=== PATIENT | male | born 1975 | race Caucasian/White ===

== ENCOUNTER 2023-08-17 08:02 | Outpatient (REF) | payer BC, SELFPAY ==
[2023-08-17 08:16] LABS: MANUAL DIFF FLAG NO
[2023-08-17 08:51] LABS: Basophils Absolute Auto 0.1 X10*3/uL (0.0-0.2); Basophils Percent Auto 1.3 % (0-2); Eosinophils Absolute Auto 0.6 X10*3/uL (0.0-0.4); Eosinophils Percent Auto 8.8 % (0-4); Hematocrit 43.9 % (42.0-52.0); Imm Gran Abs Auto 0.02 X10*3/uL (0.00-0.03); Imm Gran Pct Auto 0.3 % (0.0-0.4); Lymphocytes Absolute Auto 2.2 X10*3/uL (1.2-4.9); Lymphocytes Percent Auto 34.8 % (20-40); Mean Corpuscular HGB Conc 34.2 g/dl (31.0-36.0); Mean Corpuscular Hemoglobin 31.2 pg (27.0-33.0); Mean Corpuscular Volume 91.3 fL (80.0-98.0); Mean Platelet Volume 11.9 fL (9.4-12.4); Monocytes Absolute Auto 0.5 X10*3/uL (0.1-1.2); Monocytes Percent Auto 7.5 % (2-11); Neutrophils Absolute Auto 2.9 x10*3/uL (2.0-8.3); Neutrophils Percent Auto 47.3 % (45-73); Platelet Count 293 X10*3/uL (160-400); Red Blood Count 4.81 X10*6/uL (4.60-5.80); Red Cell Distribution Width 12.5 % (11.0-16.0); White Blood Count 6.2 X10*3/uL (4.8-10.8)
[2023-08-17 09:34] LABS: Alanine Aminotransferase 24 U/L (0-40); Albumin Level 4.5 g/dL (3.5-5.0); Alkaline Phosphatase 82 U/L (39-117); Anion Gap 11 (12-20); Aspartate Amino Transferase 21 U/L (5-37); Bilirubin Total 0.5 mg/dL (0.0-1.0); Blood Urea Nitrogen 16 mg/dL (9-16); Calcium 9.7 mg/dL (8.4-10.2); Carbon Dioxide 28 mmol/L (22-29); Chloride 109 mmol/L (96-108); Cholesterol 172 mg/dL (<200); Estimated Glomerular Filt Rate > 60; Glucose Fasting 98 mg/dL (60-99); HDL Cholesterol 51 mg/dL (>40); LDL Cholesterol Calculated 105 mg/dL (<100); Potassium 4.2 mmol/L (3.3-5.1); Sodium 144 mmol/L (135-145); Total Protein 7.5 g/dL (6.5-8.0); Triglycerides 81 mg/dL (<150); Uric Acid 5.3 mg/dL (3.4-7.0)
== END 2023-08-17 08:03 | disposition home or self-care (01) ==
LOC: HO.LAB 08:02
PROVIDERS: PCP Internal Medicine; Visit Provider Internal Medicine
DX: D64.9 Anemia, unspecified (principal); E78.5 Hyperlipidemia, unspecified; N28.9 Disorder of kidney and ureter, unspecified; M10.9 Gout, unspecified
CPT/HCPCS: 36415; 80053; 80061; 84550; 85025

== ENCOUNTER 2023-08-31 08:52 | Outpatient (AMB) | payer BC, SELFPAY ==
[2023-08-31 08:53] VITALS: BP 98/60; PULSE 67; O2SAT 98; BMI 24.7
--- NOTE | 2023-08-31 08:53 | MHC.PC.OV ---
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 Accompanied by: Self / Same As Patient Allergies No Known Allergies Allergy (Verified 08/31/23 08:53) Medication List - Last Reconciled 08/31/23 by Miguelangel Colon MD No Known Home Meds Tobacco use date assessed: 08/31/23 Dental Screening Dental Screen Date: 08/31/23 Did you have a dental visit in the last 12 months?: Yes Did you have a dental problem in the last 6 months where you did not have access to dental care?: No Was dental information given to patient?: Patient has dentist HPI Intermittent Shortness of breath HPI Details intermittent SOB; allergic rhinitis PFSH Social History Housing: House Patient Tobacco Use Status: Former Tobacco user Tobacco use type: Cigarette e-Cigarette/Vaping Use: Never Used Second Hand Smoke Exposure: No service: No Current occupational status: employed Cognitive needs: No Hearing needs: No Vision needs: Yes Questionnaire PHQ-9 Over the last 2 weeks, how often have you been bothered by any of the following problems? 1. Little interest or pleasure in doing things: not at all 2. Feeling down, depressed, or hopeless: not at all 3. Trouble falling or staying asleep, or sleeping too much: not at all 4. Feeling tired or having little energy: not at all 5. Poor appetite or overeating: not at all 6. Feeling bad about yourself - or that you are a failure or have let yourself or your family down: not at all 7. Trouble concentrating on things, such as reading the newspaper or watching television: not at all 8. Moving or speaking so slowly that other people could have noticed. Or the opposite - being so fidgety or restless that you have been moving around a lot more than usual: not at all 9. Thoughts that you would be better off or of hurting yourself in some way: not at all Total score: 0 Depression Screening Interpretation: Negative Depression Screening Done: Yes 07654 - PHQ-9 Billing: Yes Source: Developed by Drs. Tony Tucker, Rain Ventura, Levar Ponce and colleagues, with an educational dunia from [email or web address]. Thrive Questionnaire Date Thrive assessed: 08/31/23 I am a: Patient What is your living situation today?: I have a steady place to live Within the past 12 months, did the food you bought not last and you didn't have the money to get more?: Never true Within the past 12 months, did you worry whether your food would run out before you got money to buy more?: Never true Do you have trouble paying for medicines?: No Do you have trouble getting transportation to medical appointments?: No Do you have trouble paying your heating and electricity bill?: No Do you have trouble taking care of your child, family member or friend?: No Do you have trouble with day-to-day activities such as bathing, preparing meals, shopping, managing finances, etc.?: No Are you currently unemployed and looking for a job?: No Are you interested in more education?: No Please select the resources that you would like help with: None THRIVE Score: 0 AUDIT C Alcohol Use Questionnaire (AUDIT-C) 1. How often do you have a drink containing alcohol?: 2-4 times a month 2. How many drinks containing alcohol do you have on a typical day when you are drinking?: 3 or 4 3. How often do you have six or more drinks on one occasion?: Never Total Score: 3 Score Reviewed/Action Taken: Yes FABIO-7 AMB Questionnaire FABIO-7 Date FABIO - 7 assessed: 08/31/23 Feeling nervous, anxious, or on edge: 0 = Not at all Not being able to stop or control worryin = Not at all Worrying too much about different things: 0 = Not at all Trouble relaxin = Not at all Being so restless that it is hard to sit still: 0 = Not at all Becoming easily annoyed or irritable: 0 = Not at all Feeling afraid as if something awful might happen: 0 = Not at all Total FABIO-7 score (0-4 normal; 5-9 mild; 10-14 moderate; 15-21 severe): 0 Source: Developed by Alexandre Fernandoet B.W. Lorenzo, Levar Ponce and colleagues, with an educational dunia from [email or web address]. FABIO-7 Assessment Billing FABIO-7 Assessment Tool: FABIO-7 Assessment 24611 Review of Systems Const Denies chills, Denies headache(s) and Denies weight loss ENT Denies headache(s) Card Denies chest pain, Denies syncope and Denies irregular heart rhythm Resp Denies chest congestion GI Denies abdominal pain, Denies change in stool character, Denies nausea and Denies vomiting Musc Denies deformity and Denies joint swelling Neuro Denies syncope and Denies headache(s) Physical exam (Primary Care) Vital Signs: Last Vital Signs Pulse 67 08/31/23 08:53 BP 98/60 08/31/23 08:53 Pulse Ox 98 08/31/23 08:53 Oxygen Delivery Method Room Air 08/31/23 08:53 BMI result Body Mass Index 24.7 Tobacco/Smoking Status: Tobacco use Status Tobacco use date assessed 08/31/23 08/31/23 08:54 Patient Tobacco Use Status Former Tobacco user 08/31/23 08:54 Tobacco use type Cigarette 08/31/23 08:54 e-Cigarette/Vaping Use Never Used 08/31/23 08:54 PHQ-9: PHQ-9 Score PHQ-9: Total score 0 08/31/23 08:54 Depression Screening Interpretation: Negative Thrive Assessment: Date of Thrive Assessment Date Thrive assessed 08/31/23 08/31/23 08:54 Const General: cooperative, comfortable, no acute distress and alert Neck Neck: Yes no lymphadenopathy Thyroid: Thyroid normal Resp Effort & Inspection: normal respiratory effort Auscultation: clear to auscultation bilaterally Percussion: percussion normal Cardio Jugular venous distension: no JVD Palpation: normal PMI Rate: regular rate Rhythm: regular rhythm Heart sounds: S1 normal heart sound present and S2 normal heart sound present GI Inspection: Yes normal to inspection Palpation (GI): No hepatosplenomegaly present Skin General skin exam: no rashes or lesions noted Extrem General: Yes no clubbing, cyanosis or edema Assessment and Plan Assessment & Plan (1) Asthma: Code(s): J45.909 - Unspecified asthma, uncomplicated Plan: rx sent Medications: New albuterol sulfate 90 mcg/actuation (ProAir HFA) 2 puffs PO Q6H PRN 18 grams 8RF bronchospasm Coding Level of Care Code Est Pt Level 3 (08102) Diagnoses Asthma J45.909 Additional Codes FABIO-7 Assessment Billing - FABIO-7 Assessment Tool: FABIO-7 Assessment 39429 ([id number])
== END 2023-08-31 09:31 | disposition home or self-care (01) ==
PROVIDERS: PCP Internal Medicine; Visit Provider Internal Medicine
DX: J45.909 Unspecified asthma, uncomplicated (principal)
CPT/HCPCS: 99213

== ENCOUNTER 2024-06-20 10:33 | Emergency (ER) | payer BC, SELFPAY ==
--- NOTE | ~2024-06-20 | XR_ITS ---
EXAMINATION: XR CHEST 2 VIEWS HISTORY: Fall, right rib pain. COMPARISON: Comparison is made with the prior examination dated 05/24/2018. FINDINGS: PA and lateral views of the chest are submitted. The lungs are expanded and clear. There is no pleural effusion, pneumothorax, or pulmonary vascular congestion. The heart is normal in size. The bones are intact. XR/XR chest 2V IMPRESSION: No acute cardiopulmonary abnormality. Electronically signed by: Tony Juarez MD 06/20/2024 11:37 AM EST
--- NOTE | ~2024-06-20 | CT_ITS ---
EXAMINATION: CT CHEST WITHOUT CONTRAST CLINICAL INFORMATION: Right-sided chest pain, trauma 2 weeks ago. COMPARISON: Chest x-ray performed earlier today TECHNIQUE: Multidetector volumetric CT imaging of the chest was done. Axial MIP volume rendering provided. Sagittal and coronal reformatted images were obtained. This CT examination was performed using dose optimization techniques as appropriate, variously including the following: *Automated exposure control *Adjustment of mA and/or kV according to patient size (this includes techniques or standardized protocols for targeted exams where dose is matched to indication/reason for exam; i.e. 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 LUNGS: Lungs are hyperinflated without acute pneumonic process. There is no pulmonary nodule, mass, contusion atelectatic changes. Punctate 2 mm visualized left upper lobe on axial image 25/10. Calcified granuloma MEDIASTINUM: Thyroid lobes are symmetric and normal. The central trachea and the bronchi are widely patent. No abnormal size mediastinal hilar lymph nodes seen. There is no pericardial effusion. The heart size and the great vessels are normal caliber. CORONARY ARTERY CALCIFICATION: None visualized on this study. PLEURA: There is no pleural effusion. No pleural mass or thickening. AXILLA: No lymphadenopathy. UPPER ABDOMEN: Visualized liver, spleen, pancreas and bilateral adrenal glands are unremarkable. There are no radiopaque gallstones. OSSEOUS STRUCTURES: No aggressive lytic or sclerotic process seen. CT/CT chest wo IV con IMPRESSION: Unremarkable CT chest examination. No right rib fracture or chest wall bony abnormality seen Fleischner guidelines were followed. Electronically signed by: Kilo Castañeda MD 06/20/2024 01:21 PM [facility]
[2024-06-20 10:37] VITALS: BP 110/66; PULSE 64; RESP 16; TEMP 37; O2SAT 99; BMI 25.9
--- NOTE | 2024-06-20 11:16 | ED_ITS ---
HPI - General Adult General Chief complaint: Fall Stated complaint: fall, breathing issues, UC sent for CT Time Seen by Provider: 06/20/24 11:11 Source: patient Mode of arrival: ambulatory Limitations: no limitations History of Present Illness ED Provider: Judith Mullins PA-C HPI narrative: Patient is a 48 year old assigned male at with no reported medical history presenting to the emergency department today with right sided rib pain and shortness of breath. Patient states that 2 weeks ago he fell roller skating and injured his right chest / shoulder area. Patient states that he thought it was musculoskeletal but he was running with his daughter's basketball team and became very short of breath then started coughing up what appeared to be clear fluid that had a water consistency. Patient denies any dizziness, lightheadedness, abdominal pain, nausea, vomiting, fever, chills, blurry vision, double vision, loss of vision, back pain, night sweats, pain with urination, increased urinary frequency, increased urinary urgency, blood in his urine or stool, syncope or a near syncopal episode, bowel incontinence, bladder incontinence, or any other complaints at this time. Relieving factors: none Exacerbating factors: movement Associated symptoms: chest pain and shortness of breath Treatments prior to arrival: none Related Data Previous Rx's ?Medication ?Instructions ?Recorded albuterol sulfate 90 mcg/actuation 2 puff PO Q6H PRN bronchospasm #18 08/31/23 aerosol inhaler (ProAir HFA) grams Allergies Allergy/AdvReac Type Severity Reaction Status Date / Time No Known Allergies Allergy Verified 06/20/24 10:42 Review of Systems 2 Constitutional: Constitutional: Reports no additional constitutional complaints, Denies chills, Denies fever(s) and Denies night sweats Eyes: Eyes: Reports no additional eye complaints, Denies blurry vision, Denies change in vision, Denies diplopia, Denies eye discharge, Denies loss of vision and Denies eye pain ENT: Denies dizziness Cardiovascular: Cardiovascular: Reports no additional cardiovascular complaints, Reports chest pain (right sided and rib pain), Denies lightheadedness, Denies Loss of Consciousness and Reports dyspnea Respiratory: Respiratory: Reports no additional respiratory complaints and Reports dyspnea Gastrointestinal: Gastrointestinal: Reports no additional gastrointestinal complaints, Denies abdominal pain, Denies melena, Denies hematochezia, Denies change in bowel habits and Denies change in stool character Genitourinary: Genitourinary: Reports no additional male genitourinary complaints, Denies hematuria, Denies oliguria, Denies difficulty urinating, Denies dysuria, Denies urinary frequency, Denies urinary hesitancy, Denies urinary incontinence and Denies urinary urgency Musculoskeletal: Musculoskeletal: Reports no additional musculoskeletal complaints, Denies numbness and Denies tingling Neurologic: Denies dizziness, Denies loss of vision, Denies numbness and Denies tingling Psychiatric: Psychiatric: Reports no additional psychiatric complaints Endocrine: Endocrine: Reports no additional endocrine complaints Hematologic/Lymphatic: Hematologic/Lymphatic: Reports no additional hematologic/lymphatic complaints Allergic/Immunologic: Allergic/Immunologic: Reports no additional allergic/immunologic complaints PMFSH Past Medical History Attestation statement: The following information was validated with the patient. Source: old records reviewed and nursing notes reviewed Social History Social History Housing: House Patient Tobacco Use Status: Former Tobacco user Tobacco use type: Cigarette Smoked in Last 30 Days: No e-Cigarette/Vaping Use: Never Used Second Hand Smoke Exposure: No Advance Directives: No Advance Directives Information Provided: No service: No Current occupational status: employed Cognitive needs: No Hearing needs: No Vision needs: Yes Physical Exam ED Vital Signs: Vital Signs - 24 hr 06/20/24 10:37 06/20/24 12:17 06/20/24 13:31 Temperature 98.6 F 98.2 F 98.2 F Pulse Rate 64 57 57 Respiratory Rate 16 16 16 Blood Pressure 110/66 111/71 111/71 Pulse Oximetry 99 99 99 Oxygen Delivery Method Room Air Room Air Room Air BMI result Body Mass Index 25.9 Const General: cooperative, no acute distress, alert and awake Nutritional Appearance: well nourished Orientation/consciousness: patient oriented x3 Limitations: no limitations HENMT Head: Yes normal to inspection and Yes atraumatic Ears: hearing grossly normal bilaterally and external ears normal General nose exam: Normal external nose present, no nasal discharge noted and no epistaxis Face and sinus: Yes normal facial exam, No abrasion and No laceration Mouth: Normal oral and palatal mucosa present, no drooling and no muffled voice Eyes General: appearance normal, both eyes and all related structures Periorbital: periorbital findings normal Eyelids: Yes eyelids normal Conjunctivae: conjunctivae normal Pupils: Equal, round and reactive pupils present EOM: EOMs intact bilaterally Neck Neck: Yes normal visual inspection, Yes full ROM and Yes no lymphadenopathy Chest Chest palpation & inspection: normal inspection of the chest Resp Effort & Inspection: normal respiratory effort and able to speak in complete sentences GI Inspection: Yes normal to inspection Neuro General: patient oriented x3 and moves all extremities Cranial nerves: Yes Equal, round and reactive pupils present Cognition (Neuro): normal cognition Extrem General: Yes normal to inspection, Yes full ROM and Yes capillary refill normal Psych Appearance: grossly normal Mental Status: mental status grossly normal Affect: normal affect Attitude: cooperative Thought process: Normal thought process present Thought content: Normal thought content present Insight: Good insight present (Psych) Medical Decision Making Medical Decision Making [facility] Narrative: Patient is a 48 year old assigned male at with no reported medical history presenting to the emergency department today with right sided rib pain and shortness of breath. Patient's physical exam was unremarkable. Patient's blood work was unremarkable. Patient's EKG was unremarkable. Patient's chest x-ray and chest CT showed no acute process. Patient's COVID-19 test is positive. I explained my physical exam findings as well as all test results to the patient. I answered all questions asked by the patient. I stressed the importance of the patient taking his medication as directed (either prescribed or as the over the counter packaging recommends). I stressed the importance of the patient following up with his primary care provider. I stressed the importance of the patient returning to the emergency department immediately if his symptoms were to worsen or if he were to develop any dizziness, shortness of breath, difficulty breathing, chest pain, blurry vision, loss of vision, nausea, vomiting, abdominal pain, fever, chills, back pain, or any other complaints. Patient verbalized agreement and understanding with this treatment plan and discharge. Differential Diagnosis Differential Diagnoses: The differential diagnosis associated with the presentation includes Rib fracture Rib contusion COVID-19 Chest pain Atypical chest pain Pulmonary contusion Admission/Observation Consideration of admission/observation: Escalation of care including admission/observation considered Patient would have been admitted to the hospital had his work up had any findings where hospital admission was appropriate and his clinical presentation warranted hospital admission. Lab Data [facility] Lab Attestation statement: I reviewed the patient's lab results. My interpretation of these results are in the MDM Rationale portion of this note. 06/20/24 12:29 06/20/24 12:29 Labs: Lab Results 06/20/24 Range/Units 12:29 WBC 7.4 (4.8-10.8) X10*3/uL RBC 4.60 (4.60-5.80) X10*6/uL Hgb 14.2 (14.0-18.0) g/dl Hct 41.2 L (42.0-52.0) % MCV 89.6 (80.0-98.0) fL MCH 30.9 (27.0-33.0) pg MCHC 34.5 (31.0-36.0) g/dl RDW 12.7 (11.0-16.0) % Plt Count 282 (160-400) X10*3/uL MPV 11.2 (9.4-12.4) fL Immature Gran % (Auto) 0.1 (0.0-0.4) % Neut % (Auto) 47.3 (45-73) % Lymph % (Auto) 34.6 (20-40) % [place] % (Auto) 7.2 (2-11) % Eos % (Auto) 9.8 H (0-4) % Baso % (Auto) 1.0 (0-2) % Lymph # (Auto) 2.6 (1.2-4.9) X10*3/uL [place] # (Auto) 0.5 (0.1-1.2) X10*3/uL Eos # (Auto) 0.7 H (0.0-0.4) X10*3/uL Baso # (Auto) 0.1 (0.0-0.2) X10*3/uL Abs Immat Gran (auto) 0.01 (0.00-0.03) X10*3/uL Absolute Neuts (auto) 3.5 (2.0-8.3) x10*3/uL Absolute Nucleated RBC 0.000 (0.0-0.012) X10*3/uL Nucleated RBC % (auto) 0.0 (0.0-0.2) /100WBC PT 11.9 (10.9-12.4) SEC INR 1.0 (0.9-1.1) APTT 31.6 (26.0-36.8) SEC Sodium 142 (135-145) mmol/L Potassium 4.0 (3.3-5.1) mmol/L Chloride 108 (96-108) mmol/L Carbon Dioxide 29 (22-29) mmol/L Anion Gap 9 L (12-20) BUN 17 H (9-16) mg/dL Creatinine 0.94 (0.5-1.4) mg/dL Estim Creat Clear Calc 98.1 Estimated GFR > 60 Random Glucose 88 (60-115) mg/dL Calcium 9.0 D (8.4-10.2) mg/dL Magnesium 2.3 (1.6-2.6) mg/dL Total Bilirubin 0.5 (0.0-1.0) mg/dL AST 25 (5-37) U/L ALT 29 (0-40) U/L Alkaline Phosphatase 79 (39-117) U/L Troponin I High Sens 9.3 (<3.5-35.0) ng/L Total Protein 7.0 (6.5-8.0) g/dL Albumin 4.2 (3.5-5.0) g/dL Influenza Type A (PCR) NEGATIVE (Negative) Influenza Type B (PCR) NEGATIVE (Negative) RSV RNA Qual (PCR) NEGATIVE (Negative) SARS-CoV-2 RNA (RT-PCR) POSITIVE A (Negative) Independent Interpretation I performed an independent interpretation of an: EKG, Plain X-Ray and CT Scan Interpretation: My interpretation is in agreement with the radiologist's impression of these imaging studies. L Report Number: [id number]: Total DLP = 282.00 mGy-cm EXAMINATION: CT CHEST WITHOUT CONTRAST CLINICAL INFORMATION: Right-sided chest pain, trauma 2 weeks ago. COMPARISON: Chest x-ray performed earlier today TECHNIQUE: Multidetector volumetric CT imaging of the chest was done. Axial MIP volume rendering provided. Sagittal and coronal reformatted images were obtained. This CT examination was performed using dose optimization techniques as appropriate, variously including the following: *Automated exposure control *Adjustment of mA and/or kV according to patient size (this includes techniques or standardized protocols for targeted exams where dose is matched to indication/reason for exam; i.e. 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 LUNGS: Lungs are hyperinflated without acute pneumonic process. There is no pulmonary nodule, mass, contusion atelectatic changes. Punctate 2 mm visualized left upper lobe on axial image 25/10. Calcified granuloma MEDIASTINUM: Thyroid lobes are symmetric and normal. The central trachea and the bronchi are widely patent. No abnormal size mediastinal hilar lymph nodes seen. There is no pericardial effusion. The heart size and the great vessels are normal caliber. CORONARY ARTERY CALCIFICATION: None visualized on this study. PLEURA: There is no pleural effusion. No pleural mass or thickening. AXILLA: No lymphadenopathy. UPPER ABDOMEN: Visualized liver, spleen, pancreas and bilateral adrenal glands are unremarkable. There are no radiopaque gallstones. OSSEOUS STRUCTURES: No aggressive lytic or sclerotic process seen. CT/CT chest wo IV con IMPRESSION: Unremarkable CT chest examination. No right rib fracture or chest wall bony abnormality seen Fleischner guidelines were followed. Electronically signed by: Kilo Castañeda MD 06/20/2024 01:21 PM EST RP Dictated By: Kilo Castañeda MD Signed By: Electronically signed by Kilo Castañeda MD 06/20/24 1321 EXAMINATION: XR CHEST 2 VIEWS HISTORY: Fall, right rib pain. COMPARISON: Comparison is made with the prior examination dated 05/24/2018. FINDINGS: PA and lateral views of the chest are submitted. The lungs are expanded and clear. There is no pleural effusion, pneumothorax, or pulmonary vascular congestion. The heart is normal in size. The bones are intact. XR/XR chest 2V IMPRESSION: No acute cardiopulmonary abnormality. Electronically signed by: Tony Juarez MD 06/20/2024 11:37 AM EST RP Dictated By: Tony Juarez MD Signed By: Electronically signed by Tony Juarez MD 06/20/24 1137 Vent. Rate: 59 BPM Atrial Rate: 59 BPM P-R Int: 174 ms QRS Dur: 82 ms QT Int: 410 ms P-R-T Axes: 54 43 30 degrees QTcB Int: 405 ms Sinus bradycardia Minimal voltage criteria for LVH, may be normal variant (Sokolow-Ross) When compared with ECG of 24-May-2018 15:03, No significant change was found Electronically Signed By: ARTUR MALDONADO Dictated By: Artur Maldonado MD Signed By: Electronically signed by Artur Maldonado MD 06/20/24 2613 Radiology Impression Discussion of test interpretation with radiology: I have reviewed the radiologist's reading. Discharge Plan Discharge Clinical Impression: COVID-19, Contusion of lung Patient Disposition: Home, Self-Care Instructions: Pulmonary Contusion (ED), COVID-19 (Coronavirus Disease 2019) (ED) Additional Instructions: Your chest x-ray, chest CT, and lab work was unremarkable. There is no evidence of fracture/break in the right chest or ribs. Your COVID-19 test was positive. Follow up with your primary care provider. Return to the emergency department immediately if your symptoms worsen or if you develop any dizziness, shortness of breath, difficulty breathing, chest pain, blurry vision, loss of vision, nausea, vomiting, abdominal pain, fever, chills, back pain, or any other complaints. Prescriptions: No Action albuterol sulfate [ProAir HFA] 90 mcg/actuation HFA aerosol inhaler 2 puff PO Q6H PRN (Reason: bronchospasm) Qty: 18 8RF Referrals: Miguelangel Colon MD [Primary Care Provider] - Interventions: ED Discharge Assessment Last Done: 06/20/24 13:31 Discharge Date/Time: 06/20/24 13:55 Print Language: Indonesian
--- NOTE | 2024-06-20 11:31 | ECG_ITS ---
Test Reason : CHEST PAIN Blood Pressure : */* mmHG Vent. Rate : 59 BPM Atrial Rate : 59 BPM P-R Int : 174 ms QRS Dur : 82 ms QT Int : 410 ms P-R-T Axes : 54 43 30 degrees QTcB Int : 405 ms Sinus bradycardia Minimal voltage criteria for LVH, may be normal variant ( Sokolow-Ross ) Borderline ECG When compared with ECG of 24-May-2018 15:03, No significant change was found Referred By: Judith Mullins Electronically Signed By: MICHAEL MALDONADO
[2024-06-20 12:17] VITALS: BP 111/71; PULSE 57; RESP 16; TEMP 36.8; O2SAT 99
[2024-06-20 12:34] LABS: MANUAL DIFF FLAG NO
[2024-06-20 12:38] LABS: Basophils Absolute Auto 0.1 X10*3/uL (0.0-0.2); Eosinophils Absolute Auto 0.7 X10*3/uL (0.0-0.4); Eosinophils Percent Auto 9.8 % (0-4); Hematocrit 41.2 % (42.0-52.0); Hemoglobin 14.2 g/dl (14.0-18.0); Imm Gran Abs Auto 0.01 X10*3/uL (0.00-0.03); Imm Gran Pct Auto 0.1 % (0.0-0.4); Lymphocytes Absolute Auto 2.6 X10*3/uL (1.2-4.9); Lymphocytes Percent Auto 34.6 % (20-40); Mean Corpuscular HGB Conc 34.5 g/dl (31.0-36.0); Mean Corpuscular Hemoglobin 30.9 pg (27.0-33.0); Mean Corpuscular Volume 89.6 fL (80.0-98.0); Mean Platelet Volume 11.2 fL (9.4-12.4); Monocytes Absolute Auto 0.5 X10*3/uL (0.1-1.2); Monocytes Percent Auto 7.2 % (2-11); Neutrophils Absolute Auto 3.5 x10*3/uL (2.0-8.3); Neutrophils Percent Auto 47.3 % (45-73); Platelet Count 282 X10*3/uL (160-400); Red Cell Distribution Width 12.7 % (11.0-16.0); White Blood Count 7.4 X10*3/uL (4.8-10.8)
[2024-06-20 12:45] LABS: Prothrombin Time 11.9 SEC (10.9-12.4)
[2024-06-20 12:48] LABS: Partial Thromboplastin Time 31.6 SEC (26.0-36.8)
[2024-06-20 13:06] LABS: Albumin Level 4.2 g/dL (3.5-5.0); Alkaline Phosphatase 79 U/L (39-117); Anion Gap 9 (12-20); Aspartate Amino Transferase 25 U/L (5-37); Bilirubin Total 0.5 mg/dL (0.0-1.0); Blood Urea Nitrogen 17 mg/dL (9-16); Carbon Dioxide 29 mmol/L (22-29); Chloride 108 mmol/L (96-108); Creatinine Clr Calc Pharmacy 98.1; Estimated Glomerular Filt Rate > 60; Glucose Random 88 mg/dL (60-115); Magnesium 2.3 mg/dL (1.6-2.6); Sodium 142 mmol/L (135-145)
[2024-06-20 13:10] LABS: Troponin-I High Sensitivity 9.3 ng/L (<3.5-35.0)
[2024-06-20 13:18] LABS: Influenza A PCR NEGATIVE (Negative); Influenza B PCR NEGATIVE (Negative); Resp Syncy Virus RNA Qual PCR NEGATIVE (Negative); SARS COV2 PCR INHOUSE POSITIVE (Negative)
[2024-06-20 13:31] VITALS: BP 111/71; PULSE 57; RESP 16; TEMP 36.8; O2SAT 99
[2024-06-20 13:38] LABS: Alanine Aminotransferase 29 U/L (0-40)
== END 2024-06-20 13:55 | disposition home or self-care (01) ==
PROVIDERS: Physician Assistant Medical; Emergency Provider Emergency Medicine; PCP Internal Medicine
DX: S27.321A Contusion of lung, unilateral, initial encounter (principal); U07.1 COVID-19; R06.02 Shortness of breath; R07.89 Other chest pain; R00.1 Bradycardia, unspecified; X58.XXXA Exposure to other specified factors, initial encounter; Y93.9 Activity, unspecified; Y92.9 Unspecified place or not applicable; Y99.8 Other external cause status; Z87.891 Personal history of nicotine dependence; Z79.899 Other long term (current) drug therapy; Z03.818 Encounter for observation for suspected exposure to other biological agents ruled out
CPT/HCPCS: 0241U; 71046; 71250; 80053; 83735; 84484; 85025; 85610; 85730; 93005; 99285

== ENCOUNTER → 2024-06-20 10:42 | Outpatient (BNV) | payer BC, SELFPAY | PROVIDERS: Emergency Provider Emergency Medicine; PCP Internal Medicine; Visit Provider Radiology Diagnostic Radiology | DX: R07.89 Other chest pain (principal); R07.81 Pleurodynia | CPT/HCPCS: 71046; 71250 ==

== ENCOUNTER → 2024-06-20 11:31 | Outpatient (BNV) | payer BC, SELFPAY | PROVIDERS: Emergency Provider Emergency Medicine; PCP Internal Medicine; Visit Provider Internal Medicine | DX: R07.9 Chest pain, unspecified (principal); R00.1 Bradycardia, unspecified; R94.31 Abnormal electrocardiogram [ECG] [EKG] | CPT/HCPCS: 93010 ==

== ENCOUNTER 2024-10-02 13:07 | Outpatient (AMB) | payer BC, SELFPAY ==
[2024-10-02 13:15] VITALS: BP 104/60; PULSE 76; RESP 14; TEMP 37.1; O2SAT 97; BMI 24.2
--- NOTE | 2024-10-02 13:15 | A.OFFPC_ITS ---
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 Accompanied by: Self / Same As Patient Allergies No Known Allergies Allergy (Verified 10/02/24 13:33) Medication List - Last Reconciled 10/02/24 by JOYCE Zimmerman albuterol sulfate 90 mcg/actuation (ProAir HFA) 2 puffs PO Q6H PRN loratadine-pseudoephedrine 10-240 mg ER (Claritin-D 24 Hour) 1 tab PO DAILY PRN Tobacco use date assessed: 10/02/24 Dental Screening Dental Screen Date: 10/02/24 Did you have a dental visit in the last 12 months?: Yes Did you have a dental problem in the last 6 months where you did not have access to dental care?: No Was dental information given to patient?: Patient has dentist HPI MICHAEL DR Colon HPI Details The patient is a 49-year-old male presenting to transition care from Dr. Colon, who retired. He has respiratory concerns. The issues began last year with breathing difficulties and chest heaviness, evaluated through imaging showing no abnormalities, and an inhaler was prescribed with little effect. Post a Jun 05 fall, the patient experienced back pain and respiratory distress during physical exertion, leading to a diagnosis of COVID-19 and a possible bruised lung without structural damage. Residual symptoms include unilateral right-sided chest bruising sensation, transient morning coughing, non-discolored mucus production, and exertional wheezing and fluid sensation. Seasonal allergies are noted but generally did not correlate with asthma until recently. [facility] Medical History (Updated 10/05/24 @ 17:03 by JOYCE Zimmerman) History of insertion of dental endosseous implant Surgical History (Updated 10/02/24 @ 13:21 by Mckayla Saenz CMA) Hx of wisdom tooth extraction Hx of nasal polypectomy Hx of tonsillectomy Family History (Updated 10/02/24 @ 13:22 by Mckayla Saenz CMA) Mother Atrial fibrillation Social History Housing: House Patient Tobacco Use Status: Never used Tobacco Tobacco use type: Cigarette e-Cigarette/Vaping Use: Never Used Second Hand Smoke Exposure: No service: No Current occupational status: employed Cognitive needs: No Hearing needs: No Vision needs: Yes (Glasses) Questionnaire PHQ-9 Over the last 2 weeks, how often have you been bothered by any of the following problems? 1. Little interest or pleasure in doing things: several days 2. Feeling down, depressed, or hopeless: not at all 3. Trouble falling or staying asleep, or sleeping too much: not at all 4. Feeling tired or having little energy: several days 5. Poor appetite or overeating: not at all 6. Feeling bad about yourself - or that you are a failure or have let yourself or your family down: not at all 7. Trouble concentrating on things, such as reading the newspaper or watching television: not at all 8. Moving or speaking so slowly that other people could have noticed. Or the opposite - being so fidgety or restless that you have been moving around a lot more than usual: not at all 9. Thoughts that you would be better off or of hurting yourself in some way: not at all Total score: 2 Depression Screening Interpretation: Negative Depression Screening Done: Yes 48046 - PHQ-9 Billing: Yes Source: Developed by Drs. Tony Tucker, Rain Ventrua, Levar Ponce and colleagues, with an educational dunia from [employer]. Thrive Questionnaire Date Thrive assessed: 10/02/24 I am a: Patient What is your living situation today?: I have a steady place to live Within the past 12 months, did the food you bought not last and you didn't have the money to get more?: Never true Within the past 12 months, did you worry whether your food would run out before you got money to buy more?: Never true Do you have trouble paying for medicines?: No Do you have trouble getting transportation to medical appointments?: No Do you have trouble paying your heating and electricity bill?: No Do you have trouble taking care of your child, family member or friend?: No Do you have trouble with day-to-day activities such as bathing, preparing meals, shopping, managing finances, etc.?: No Are you currently unemployed and looking for a job?: No Are you interested in more education?: No Please select the resources that you would like help with: None Currently or been in a relationship where the following occur: No concerns reported THRIVE Score: 0 AUDIT C Alcohol Use Questionnaire (AUDIT-C) 1. How often do you have a drink containing alcohol?: 2-3 times a week 2. How many drinks containing alcohol do you have on a typical day when you are drinking?: 3 or 4 3. How often do you have six or more drinks on one occasion?: Never Total Score: 4 Score Reviewed/Action Taken: Yes FABIO-7 AMB Questionnaire FABIO-7 Date FABIO - 7 assessed: 10/02/24 Feeling nervous, anxious, or on edge: 0 = Not at all Not being able to stop or control worryin = Not at all Worrying too much about different things: 0 = Not at all Trouble relaxin = Not at all Being so restless that it is hard to sit still: 0 = Not at all Becoming easily annoyed or irritable: 0 = Not at all Feeling afraid as if something awful might happen: 0 = Not at all Total FABIO-7 score (0-4 normal; 5-9 mild; 10-14 moderate; 15-21 severe): 0 Source: Developed by Drs. Tony Tucker, Rain Ventura, Levar Ponce and colleagues, with an educational dunia from [employer]. FABIO-7 Assessment Billing FABIO-7 Assessment Tool: FABIO-7 Assessment 72025 Review of Systems Const Details: - Respiratory: Reports difficulty breathing, wheezing, mucus production, and morning coughing; Denies upper respiratory infection. - Musculoskeletal: Reports back pain post fall, now resolved; Denies ongoing musculoskeletal pain. - Constitutional: Reports a recent stomach bug and accompanying rash; Denies fever, weight loss, or fatigue. Denies headache(s) ENT Denies headache(s), Reports nasal congestion and Denies sore throat Card Denies chest pain, Denies leg edema, Denies lightheadedness and Reports dyspnea Resp Reports cough (in the mornings), Denies hemoptysis, Reports dyspnea and Reports wheezing GI Denies abdominal pain, Denies diarrhea and Denies nausea Denies dysuria, Denies urinary frequency and Denies urinary urgency Musc Reports back pain, Denies arthralgias, Denies joint swelling, Denies numbness and Denies tingling Neuro Denies Abnormal speech present, Denies headache(s), Denies numbness and Denies tingling Sam/Lymph Denies easy bleeding and Denies easy bruising Aller/Immun Reports wheezing Physical exam (Primary Care) Vital Signs: Last Vital Signs Temp 98.8 F 10/02/24 13:15 Pulse 76 10/02/24 13:15 Resp 14 10/02/24 13:15 BP 104/60 10/02/24 13:15 Pulse Ox 97 10/02/24 13:15 Oxygen Delivery Method Room Air 10/02/24 13:15 BMI result Body Mass Index 24.2 Tobacco/Smoking Status: Tobacco use Status Tobacco use date assessed 10/02/24 10/02/24 13:27 Patient Tobacco Use Status Never used Tobacco 10/02/24 13:27 Tobacco use type Cigarette 10/02/24 13:27 e-Cigarette/Vaping Use Never Used 10/02/24 13:27 PHQ-9: PHQ-9 Score PHQ-9: Total score 2 10/02/24 13:55 Depression Screening Interpretation: Negative Thrive Assessment: Date of Thrive Assessment Date Thrive assessed 10/02/24 10/02/24 13:27 Currently or been in a relationship where the following occur: No concerns reported Const General: healthy appearing, no acute distress, alert and awake Nutritional Appearance: well nourished Orientation/consciousness: oriented to person, oriented to place and oriented to time HENMT Ears: TM's normal bilaterally General nose exam: Normal nasal mucous membranes and turbinates present Eyes Conjunctivae: conjunctivae normal Sclerae: sclerae normal Pupils: Equal, round and reactive pupils present Neck Neck: Yes no lymphadenopathy and Yes no JVD Thyroid: Thyroid normal Carotids: no bruits Resp Effort & Inspection: normal respiratory effort and not tachypneic Auscultation: no crackles, no rales, no rhonchi and no wheezes Cardio Rate: regular rate Rhythm: regular rhythm Heart sounds: no murmurs and normal S1 and S2 GI Palpation (GI): Soft to palpation, nontender, no hepatomegaly and no splenomegaly Auscultation: normal bowel sounds Back/Spine/Pelvis Thoracic/Lumbar Spine: No lumbar spinal tenderness Skin General skin exam: no rashes or lesions noted and dry skin Neuro General: oriented to person, oriented to place and oriented to time Cranial nerves: Yes Equal, round and reactive pupils present Speech: No Abnormal speech present Gait exam (Neuro): Normal gait present Motor exam (neuro): no tremor noted Extrem Right upper extremity: full ROM Left upper extremity: full ROM Right lower extremity: full ROM; no edema Left lower extremity: full ROM; no edema Psych Mental Status: mental status grossly normal Speech and movement: Normal speech and movement present Affect: normal affect Attitude: cooperative Thought process: Normal thought process present Coding Level of Care Code Est Pt Level 3 (37420) Diagnoses Seasonal allergies J30.2 Asthma, unspecified asthma severity, unspecified whether complicated, unspecified whether persistent J45.909 Asthma persistence: unspecified Asthma complication type: unspecified Asthma severity: unspecified severity Midline low back pain without sciatica, unspecified chronicity M54.50 Back pain location: low back pain Chronicity: unspecified Back pain laterality: midline Sciatica presence: without sciatica Additional Codes FABIO-7 Assessment Billing - FABIO-7 Assessment Tool: FABIO-7 Assessment 80340 ([id number]) PHQ-9 - 39236 - PHQ-9 Billing: Yes ([id number]) Time Spent (min) 33 Assessment & Plan Assessment & Plan (1) Seasonal allergies: Code(s): J30.2 - Other seasonal allergic rhinitis Category: Medical (2) Asthma: Code(s): J45.909 - Unspecified asthma, uncomplicated Category: Medical Qualifiers: Asthma persistence: unspecified Asthma complication type: unspecified Asthma severity: unspecified severity Qualified Code(s): J45.909 - Unspecified asthma, uncomplicated (3) Back pain: Code(s): M54.9 - Dorsalgia, unspecified Category: Medical Qualifiers: Back pain location: low back pain Chronicity: unspecified Back pain laterality: midline Sciatica presence: without sciatica Qualified Code(s): M54.50 - Low back pain, unspecified Plan The patient is planned for a Pulmonology consult to assess potential asthma and evaluate possible preventive treatment. Continued use of a rescue inhaler for urgent respiratory symptoms is endorsed. The recent COVID-19 episode and residual lung concerns will be considered by the specialist with a potential review of imaging studies. Health maintenance includes colonoscopy scheduling and monitoring of cholesterol levels. Follow-up is planned based on findings from these evaluations. LBP: Avoid bed rest (including sitting in bed) and to simply limit painful activities; improvement usually occurs within a few weeks May use cool packs; may alternate cold and hot packs Exercises a sosa (e.g., walking, swimming, cycling) as soon as possible, starting with 5-10 min and walk-in up to 20-30 minute q.day Abdominal core and back strengthening exercises may help to prevent future problems Patient was informed and verbally consented to the use of an ambient scribe for clinic note documentation during this visit. Orders: Orders Comprehensive [place]. Panel Fast 10/02/24 J30.2 - Other seasonal allergic rhinitis, Z00.00 - Encounter for general adult medical examination without abnormal findings Glucose Fasting 10/02/24 J30.2 - Other seasonal allergic rhinitis, Z.00 - Encounter for general adult medical examination without abnormal findings UA CC w/rflx Micro + Cult 10/02/24 J30.2 - Other seasonal allergic rhinitis, Z00.00 - Encounter for general adult medical examination without abnormal findings TSH reflex Free T4 10/02/24 J30.2 - Other seasonal allergic rhinitis, Z00.00 - Encounter for general adult medical examination without abnormal findings Complete Blood Count Auto Diff 10/02/24 J30.2 - Other seasonal allergic rhinitis, Z00.00 - Encounter for general adult medical examination without abnormal findings Vitamin D 25-OH Total 10/02/24 J30.2 - Other seasonal allergic rhinitis, Z00.00 - Encounter for general adult medical examination without abnormal findings Lipid Panel 10/02/24 J30.2 - Other seasonal allergic rhinitis, Z00.00 - Encounter for general adult medical examination without abnormal findings Referrals Pulmonology Referral J30.2 - Other seasonal allergic rhinitis, J45.909 - Unspecified asthma, uncomplicated
== END 2024-10-02 16:28 | disposition home or self-care (01) ==
LOC: HO.HMCH 13:08
DX: J30.2 Other seasonal allergic rhinitis (principal); J45.909 Unspecified asthma, uncomplicated; M54.50 Low back pain, unspecified

== ENCOUNTER → 2024-10-02 13:07 | Outpatient (BNVA) | payer BC, SELFPAY | DX: J45.909 Unspecified asthma, uncomplicated (principal); M54.50 Low back pain, unspecified | CPT/HCPCS: 96127 ==

== ENCOUNTER 2024-11-25 13:52 | Outpatient (AMB) | payer BC, SELFPAY ==
--- NOTE | 2024-11-25 13:57 | MHC.OFFVIS ---
Vital Signs 11/25/24 13:58 Height 5 ft 9 in Weight 164 lb 3.91 oz BMI 24.3 BP 98/68 Blood Pressure Location Lt brachial Position Sitting Pulse 69 Pulse Source Pulse Oximeter Pulse Oximetry (%) 98 Oxygen Delivery Method Room Air Intake Visit Reasons: Asthma Intake Note: pt is here as a new patient for chest discomfort on the right side, wheeze, some coughing with phelgm but it is clear, started last August with a feeling of not getting a full breath,. Evp Strategy Required: No Allergies No Known Allergies Allergy (Verified 11/25/24 16:45) Medication List - Last Reconciled 11/25/24 by Louis Rodriguez MD albuterol sulfate 90 mcg/actuation (ProAir HFA) 2 puffs PO Q6H PRN loratadine-pseudoephedrine 10-240 mg ER (Claritin-D 24 Hour) 1 tab PO DAILY PRN Do you need a note to return to daycare/school/sports/work: No HPI HPI Asthma: Details: THIS 49 YEARS OLD GENTLEMAN IS BEING SEEN FOR THE 1ST TIME FOR PULMONARY EVALUATION AND MANAGEMENT. HE HAS HISTORY OF A FALL, WHILE SKATING ALONG WITH HIS CHILDREN BACK IN MAY 2024. HE HIT THE RIGHT SIDE OF THE CHEST ON THE FLOOR. AFTER THAT HE CONTINUE TO HAVE VERY VAGUE TYPE OF DISCOMFORT IN THE RIGHT CHEST ESPECIALLY ON TAKING A DEEP BREATH. HE WAS SEEN IN THE EMERGENCY ROOM IN MID JUNE AND COMPLETE WORKUP WAS ESSENTIALLY NEGATIVE. CHEST X-RAY DID NOT SHOW ANY ABNORMALITY IN THE RIBCAGE ALL THE LUNGS. HE HAS CONTINUE TO HAVE THIS WAKE TYPE OF DISCOMFORT IN THE RIGHT CHEST OFF AND ON, SOMETIMES WITH ACTIVITY AND SOMETIMES EVEN WHEN RESTING. HE ALSO EXPERIENCES GETTING SHORT OF BREATH ON WALKING FAST OR CLIMBING STAIRS. ON FURTHER QUESTIONING HIS MAIN SYMPTOM CAME OUT TO BE FEELING OF FLUID IN THE UPPER AIRWAYS AND URGE TO COUGH AND CLEAR IT UP. I CLARIFIED THE NATURE OF THIS SYMPTOM WITH HIM AND ACTUALLY IT SEEMS THAT HE FEELS THERE IS SOME TIGHTNESS IN THE UPPER AIRWAYS AND HE HAS URGE TO CLEAR THE MUCUS, THAT IS WHAT HE CALLS FLUID. RETROSPECTIVELY HE DOES HAVE THIS TYPE OF SYMPTOM ALONG WITH SOME NASAL CONGESTION AND POSTNASAL DRIP FOR MANY YEARS. HE HAS BEEN SEEN BY ENT SPECIALIST ABOUT 3 OR 4 YEARS AGO AND ALSO HAS HAD NASAL POLYP REMOVED FROM THE RIGHT WELL LEFT NOSTRIL. HE HAS BEEN TAKING CLARITIN PLAIN CLARITIN OR WITH PSEUDO EPHEDRINE OF AND ON TO RELIEVE THE UPPER AIRWAY SYMPTOMS. HE STATES THAT HE HAS LONGSTANDING HISTORY OF SEASONAL ALLERGIES.. HE IS NONSMOKER NONDRINKER HE TESTED POSITIVE FOR COVID INFECTION IN JUNE 2024 WHEN HE WENT TO THE EMERGENCY ROOM. BUT HE DENIES HAVING HAD ANY SYMPTOMS OF COVID INFECTION. HE IS A NONSMOKER NONDRINKER NO SPECIFIC ALLERGIES EXCEPT FOR ENVIRONMENTAL ALLERGIES NOTED ABOVE [facility] Medical History Allergic rhinitis History of insertion of dental endosseous implant Surgical History Hx of wisdom tooth extraction Hx of nasal polypectomy Hx of tonsillectomy Family History Mother Atrial fibrillation Social History Housing: House Patient Tobacco Use Status: Never used Tobacco Tobacco use type: Cigarette e-Cigarette/Vaping Use: Never Used Second Hand Smoke Exposure: No service: No Current occupational status: employed Cognitive needs: No Hearing needs: No Vision needs: Yes (Glasses) Review of Systems Const All systems reviewed & are unremarkable except as noted in HPI and below Eyes Reports no additional complaints ENT Reports nasal congestion and Reports nasal discharge Card Reports no additional complaints Resp Reports chest congestion (MOSTLY ON THE RIGHT SIDE) and Reports excessive phlegm production (HE DOES HAVE AN URGE TO CLEAR HIS UPPER AIRWAYS QUITE FREQUENTLY) GI Reports no additional complaints Reports no additional complaints Musc Reports no additional complaints Skin/Breast Reports system reviewed and no additional complaints, except as documented Neuro Reports no additional complaints Psych Reports no additional complaints Endo Reports no additional complaints Sam/Lymph Reports no additional complaints Physical Exam Vital Signs: Last Vital Signs Pulse 69 11/25/24 13:58 BP 98/68 11/25/24 13:58 Pulse Ox 98 11/25/24 13:58 Oxygen Delivery Method Room Air 11/25/24 13:58 BMI result Body Mass Index 24.3 Const General: healthy appearing, comfortable, no acute distress, alert and awake Orientation/consciousness: patient oriented x3 HEENT Head: Yes normal to inspection General nose exam: No nasal polyps present (BUT BOTH NOSTRILS ARE SOMEWHAT NARROWED) and No nasal discharge present (HAS MILD NASAL CONGESTION IN THE LEFT NOSTRIL) Face and sinus: Yes sinuses nontender Mouth: oropharynx normal Throat: Yes posterior oropharynx normal Eyes General: appearance normal, both eyes and all related structures Neck Neck: Yes normal visual inspection, Yes no lymphadenopathy, Yes trachea midline and Yes no JVD Thyroid: Thyroid normal Chest Chest palpation & inspection: normal inspection of the chest, normal palpation of entire chest wall and tenderness Resp Effort & Inspection: normal respiratory effort Auscultation: clear to auscultation bilaterally, no rhonchi and no wheezes Cardio Palpation: normal PMI Rate: regular rate Rhythm: regular rhythm Heart sounds: no gallops and no murmurs Peripheral pulses: Peripheral pulses 2+ throughout GI Palpation (GI): Soft to palpation, nontender, No hepatosplenomegaly present and no masses Auscultation: normal bowel sounds Back/Spine/Pelvis Thoracic/Lumbar Spine: thoracic and lumbar spine normal to inspection Skin General skin exam: no rashes or lesions noted Neuro General: patient oriented x3 and no focal motor deficits Cranial nerves: Yes CN's II-XII intact bilaterally Extrem General: Yes normal to inspection, Yes no clubbing, cyanosis or edema and Yes no calf tenderness Psych Appearance: grossly normal and well kempt Speech and movement: Normal speech and movement present Results Reviewed Results Reviewed: 06/20/2024 CT SCAN OF THE CHEST IMPRESSION: Unremarkable CT chest examination. No right rib fracture or chest wall bony abnormality seen CBC 08/17/2023 EOSINOPHIL COUNT 8.8% 06/20/2024 9.8 % Assessment & Plan Assessment & Plan (1) Allergic rhinitis: Comment: HIS HISTORY IS INDICATED OF A LONGSTANDING CASE OF ALLERGIC RHINITIS/ NASAL POLYPS . ALONG WITH THAT I THINK HE HAS CHRONIC ALLERGY SYNDROME OF THE UPPER AIRWAYS. WHAT HE DESCRIBES FLUID IN THE RIGHT SIDE OF THE CHEST AN URGE TO CLEAR THE MUCUS SEEMS TO BE DUE TO UPPER AIRWAY ALLERGY. Code(s): J30.9 - Allergic rhinitis, unspecified Category: Medical Plan: HAD A LENGTHY TALK WITH THE PATIENT AND EXPLAINED TO HIM ABOUT THIS CHRONIC ALLERGIC CONDITION. I HAVE ORDERED RAST TEST TO CHECK FOR ENVIRONMENTAL ALLERGIES OF THE [place] AREA. ALSO ORDERED CBC WITH DIFF AND IGE LEVEL. WE WILL PLAN FOR THE TREATMENT AFTER THESE RESULTS. (2) Asthma: Comment: IN ADDITION TO THE ALLERGIC RHINITIS AND , ALLERGIC UPPER AIRWAY SYNDROME , HE MAY HAVE SOME DEGREE OF BRONCHIAL ASTHMA. WHICH WOULD GO ALONG WITH THE UPPER AIRWAY ALLERGY SYNDROME. Code(s): J45.909 - Unspecified asthma, uncomplicated Category: Medical Qualifiers: Asthma complication type: unspecified Asthma persistence: unspecified Asthma severity: unspecified severity Qualified Code(s): J45.909 - Unspecified asthma, uncomplicated Plan: PULMONARY FUNCTION TEST IS ORDERED. ALLERGY TESTING OUTLINED ABOVE UNDER ALLERGIC RHINITIS. IF HE HAS SIGNIFICANT EOSINOPHILIA OR ELEVATED IGE LEVEL HE MAY BE CANDIDATE FOR BIOLOGIC TREATMENT. Orders: Orders Complete Blood Count Auto Diff Today J30.9 - Allergic rhinitis, unspecified, J45.909 - Unspecified asthma, uncomplicated Immunoglobulin E Today J30.9 - Allergic rhinitis, unspecified, J45.909 - Unspecified asthma, uncomplicated Coding Level of Care Code New Pt Level 4 (18001) Diagnoses Allergic rhinitis J30.9 Asthma, unspecified asthma severity, unspecified whether complicated, unspecified whether persistent J45.909 Asthma complication type: unspecified Asthma persistence: unspecified Asthma severity: unspecified severity
[2024-11-25 13:58] VITALS: BP 98/68; PULSE 69; O2SAT 98; BMI 24.3
== END 2024-11-25 14:37 | disposition home or self-care (01) ==
LOC: HO.HPS 13:53
PROVIDERS: Visit Provider Internal Medicine
DX: J30.9 Allergic rhinitis, unspecified (principal); J45.909 Unspecified asthma, uncomplicated
CPT/HCPCS: 99204

== ENCOUNTER 2024-11-25 13:52 | Outpatient (REF) | payer BC, SELFPAY ==
[2024-11-26 19:38] LABS: Class Alternaria alternata 0; Class Aspergillus fumigatus 0; Class Bermuda Grass 0; Class Birch 3; Class Cat Dander 3; Class Cladosporium herbarum 0; Class Cockroach 0; Class Common Ragweed 0; Class Cottonwood 0; Class Derm. pterony 2; Class Dermatophagoides farinae 2; Class Dog Dander 0/1; Class Elm 0; Class Maple Box Elder 0/1; Class Mountain Cedar 0; Class Mouse Urine Protein 0; Class Mugwort 0; Class Oak 2; Class Penicillium crysogenum 0; Class Rough Pigweed 0; Class Sheep Sorrel 0; Class Sycamore 0; Class Timothy Grass 1; Class Walnut Tree 0; Class White Ash 0/1; Class White Mulberry 0; D002 - IgE D farinae 0.86 kU/L; E005 - IgE Dog Dander 0.29 kU/L; E072-IgE Mouse Urine <0.10 kU/L; G002 IgE Bermuda Grass <0.10 kU/L; I006-IgE Cockroach, German <0.10 kU/L; Immunoglobulin E 74 kU/L (<OR=114); M001 IgE Penicillium chrysogen <0.10 kU/L; M002 - IgE Cladosporium herbar <0.10 kU/L; M003 - IgE Aspergillus fumigat <0.10 kU/L; M006 - IgE Alternaria alternat <0.10 kU/L; T006 - IgE Cedar, Mountain <0.10 kU/L; T007 - IgE Oak, White 3.31 kU/L; T008 IgE Elm, American <0.10 kU/L; T010 - IgE Walnut <0.10 kU/L; T011 - IgE Maple Leaf Sycamore <0.10 kU/L; T014 - IgE Cottonwood <0.10 kU/L; T015 - IgE Ash, White 0.13 kU/L; T070 - IgE White Mulberry <0.10 kU/L; W001 - IgE Ragweed, Short <0.10 kU/L; W006 - IgE Mugwort <0.10 kU/L; W014 IgE Pigweed, Common <0.10 kU/L; W018 IgE Sheep Sorrel <0.10 kU/L
== END 2024-11-25 13:53 | disposition home or self-care (01) ==
LOC: HO.LAB 13:52
PROVIDERS: Visit Provider Internal Medicine
DX: J45.909 Unspecified asthma, uncomplicated (principal); D72.10 Eosinophilia, unspecified; Z87.09 Personal history of other diseases of the respiratory system
CPT/HCPCS: 36415; 82785; 86003

== ENCOUNTER 2024-11-26 08:07 | Outpatient (REF) | payer BC, SELFPAY ==
--- NOTE | 2024-11-26 08:09 | PFT_ITS ---
Indication: Dyspnea Spirometry FEV1 to FVC 69% pre bronchodilators and 75% post bronchodilators; FEV1 3.6 L; FVC 5.12 L. no significant response to bronchodilators noted. Lung Volumes Total lung capacity 104% predicted; residual volume 112% predicted Diffusion Capacity DLCO 92% predicted Comparisons None Interpretation The patient appears to have a reversible obstruction consistent with a diagnosis of asthma or hyper-reactive airways. No significant response to bronchodilators noted. Significant small airways disease suspicious for asthma as well. Lung volumes with a trend of air trapping likely secondary to the obstructive physiology. Diffusing capacity within normal limits. Clinical correlation warranted. MTDD
[2024-11-26 08:50] VITALS: PULSE 75; O2SAT 98
== END 2024-11-26 08:08 | disposition home or self-care (01) ==
LOC: HO.RESP 08:07
PROVIDERS: Visit Provider Internal Medicine
DX: J45.909 Unspecified asthma, uncomplicated (principal)
CPT/HCPCS: 94010; 94640; 94727; 94729

== ENCOUNTER → 2024-11-26 08:09 | Outpatient (BNV) | payer BC, SELFPAY | PROVIDERS: Visit Provider Hospitalist | DX: R06.00 Dyspnea, unspecified (principal) | CPT/HCPCS: 94060; 94727; 94729 ==

== ENCOUNTER 2025-01-05 15:32 | Outpatient (AMB) | payer BC, SELFPAY ==
--- NOTE | 2025-01-05 15:49 | MHC.OFFVIS ---
Vital Signs 01/05/25 15:50 Height 5 ft 9 in Weight 163 lb 2.273 oz BMI 24.1 BP 98/52 L Blood Pressure Location Lt brachial Position Sitting Pulse 72 Pulse Source Pulse Oximeter Pulse Oximetry (%) 96 Oxygen Delivery Method Room Air Intake Visit Reasons: Asthma Intake Note: pt is here for follow up for follow up of pft and still some heaviness in the chest and also rast testing results. Allergies No Known Allergies Allergy (Verified 01/05/25 16:26) Medication List - Last Reconciled 01/05/25 by Louis Rodriguez MD albuterol sulfate 90 mcg/actuation (ProAir HFA) 2 puffs PO Q6H PRN loratadine-pseudoephedrine 10-240 mg ER (Claritin-D 24 Hour) 1 tab PO DAILY PRN Do you need a note to return to daycare/school/sports/work: No HPI HPI Asthma: Details: 49 YEARS OLD GENTLEMAN IS HERE FOR FOLLOW-UP CONTINUES TO HAVE A FEELING OF SOME MUCUS IN THE UPPER RIGHT LUNG. HE DOES COUGH UP AND BRINGS SOME PHLEGM OUT USUALLY IN THE MORNING HOURS. HIS NOSE DOES FEELS SOMEWHAT CONGESTED BUT HE HAS NO SNEEZING OR RUNNY NOSE. IT DOES FEEL THAT HE IS HAVING SOME POSTNASAL DISCHARGE WHICH ACCUMULATES IN THE RIGHT UPPER LUNG BRONCHIOLES. ON HIS LAST VISIT WAS MY FEELING THAT HE HAS SOME ALLERGY PROBLEM AND HAS POSTNASAL DISCHARGE CAUSING THE SYMPTOMS. HE USES LORATADINE-PSEUDO EPHEDRINE . ALMOST ON A DAILY BASIS DOES NOT NEED TO USE ANY BRONCHODILATORS HE HAS 2 CATS AT HOME. [facility] Medical History Allergic rhinitis History of insertion of dental endosseous implant Surgical History Hx of wisdom tooth extraction Hx of nasal polypectomy Hx of tonsillectomy Family History Mother Atrial fibrillation Social History Housing: House Patient Tobacco Use Status: Never used Tobacco Tobacco use type: Cigarette e-Cigarette/Vaping Use: Never Used Second Hand Smoke Exposure: No service: No Current occupational status: employed Cognitive needs: No Hearing needs: No Vision needs: Yes (Glasses) Review of Systems Const All systems reviewed & are unremarkable except as noted in HPI and below Eyes Reports no additional complaints ENT Reports nasal congestion and Reports nasal discharge Card Reports no additional complaints Resp Reports chest congestion (MOSTLY ON THE RIGHT SIDE) and Reports excessive phlegm production (HE DOES HAVE AN URGE TO CLEAR HIS UPPER AIRWAYS QUITE FREQUENTLY) GI Reports no additional complaints Reports no additional complaints Musc Reports no additional complaints Skin/Breast Reports system reviewed and no additional complaints, except as documented Neuro Reports no additional complaints Psych Reports no additional complaints Endo Reports no additional complaints Sam/Lymph Reports no additional complaints Physical Exam Vital Signs: Last Vital Signs Pulse 72 01/05/25 15:50 BP 98/52 L 01/05/25 15:50 Pulse Ox 96 01/05/25 15:50 Oxygen Delivery Method Room Air 01/05/25 15:50 BMI result Body Mass Index 24.1 Const General: healthy appearing, comfortable, no acute distress, alert and awake Orientation/consciousness: patient oriented x3 HEENT Head: Yes normal to inspection General nose exam: No nasal polyps present (BUT BOTH NOSTRILS ARE SOMEWHAT NARROWED) and No nasal discharge present (HAS MILD NASAL CONGESTION IN THE LEFT NOSTRIL) Face and sinus: Yes sinuses nontender Mouth: oropharynx normal Throat: Yes posterior oropharynx normal Eyes General: appearance normal, both eyes and all related structures Neck Neck: Yes normal visual inspection, Yes no lymphadenopathy, Yes trachea midline and Yes no JVD Thyroid: Thyroid normal Chest Chest palpation & inspection: normal inspection of the chest, normal palpation of entire chest wall and tenderness Resp Effort & Inspection: normal respiratory effort Auscultation: clear to auscultation bilaterally, no rhonchi and no wheezes Cardio Palpation: normal PMI Rate: regular rate Rhythm: regular rhythm Heart sounds: no gallops and no murmurs Peripheral pulses: Peripheral pulses 2+ throughout GI Palpation (GI): Soft to palpation, nontender, No hepatosplenomegaly present and no masses Auscultation: normal bowel sounds Back/Spine/Pelvis Thoracic/Lumbar Spine: thoracic and lumbar spine normal to inspection Skin General skin exam: no rashes or lesions noted Neuro General: patient oriented x3 and no focal motor deficits Cranial nerves: Yes CN's II-XII intact bilaterally Extrem General: Yes normal to inspection, Yes no clubbing, cyanosis or edema and Yes no calf tenderness Psych Appearance: grossly normal and well kempt Speech and movement: Normal speech and movement present Results Reviewed Results Reviewed: CBC EOSINOPHIL COUNT 9.8% IGE 74( N) REST TEST STRONGLY POSITIVE FOR CAT AND DOGS DANDER. ALSO STRONGLY POSITIVE FOR TREE HE HAS SUCH MAPLE ,O[place] ,[place] , [place] Assessment & Plan Assessment & Plan (1) Allergic rhinitis: Comment: HIS HISTORY IS INDICATED OF A LONGSTANDING CASE OF ALLERGIC RHINITIS/ NASAL POLYPS . ALONG WITH THAT I THINK HE HAS CHRONIC ALLERGY SYNDROME OF THE UPPER AIRWAYS. WHAT HE DESCRIBES FLUID IN THE RIGHT SIDE OF THE CHEST, AN URGE TO CLEAR THE MUCUS SEEMS TO BE DUE TO UPPER AIRWAY ALLERGY. Code(s): J30.9 - Allergic rhinitis, unspecified Category: Medical Plan: EXPLAINED TO THE PATIENT THE RESULTS OF THE RAST TESTING. AND ADVISE THAT HE SHOULD TRY TO STAY AWAY. FROM THE CATS, DOG AND THOSE TREES MAY USE LORATADINE-PSEUDO EPHEDRINE 1 TABLET DAILY NEEDED. MAY USE FLONASE 1 OR 2 SPRAYS IN EACH NOSTRIL DAILY. ALSO DISCUSSED ABOUT USING SINGULAIR 10 MG ONCE A DAY BUT HE WANTS TO WAIT ON THAT. DISCUSSED ABOUT ALLERGY SHOTS BUT I TOLD HIM THAT AT THIS POINT THE BEST TREATMENT IS AVOIDANCE THE EXPOSURE . (2) Asthma: Comment: IN ADDITION TO THE ALLERGIC RHINITIS AND , ALLERGIC UPPER AIRWAY SYNDROME , HE MAY HAVE SOME DEGREE OF BRONCHIAL ASTHMA. PULMONARY FUNCTION TEST IS ESSENTIALLY NORMAL Code(s): J45.909 - Unspecified asthma, uncomplicated Category: Medical Qualifiers: Asthma severity: unspecified severity Asthma persistence: unspecified Asthma complication type: unspecified Qualified Code(s): J45.909 - Unspecified asthma, uncomplicated Plan: KEEP ALBUTEROL HFA ON HAND AND MAY USE 1 OR 2 PUFFS Q 6 HOURS ONLY P.R.N. IF HE HAS WHEEZING. Coding Level of Care Code Est Pt Level 3 (66756) Diagnoses Allergic rhinitis J30.9 Asthma, unspecified asthma severity, unspecified whether complicated, unspecified whether persistent J45.909 Asthma severity: unspecified severity Asthma persistence: unspecified Asthma complication type: unspecified
[2025-01-05 15:50] VITALS: BP 98/52; PULSE 72; O2SAT 96; BMI 24.1
== END 2025-01-05 16:25 | disposition home or self-care (01) ==
PROVIDERS: Visit Provider Internal Medicine
DX: J30.9 Allergic rhinitis, unspecified (principal); J45.909 Unspecified asthma, uncomplicated
CPT/HCPCS: 99213

== ENCOUNTER 2025-02-24 08:36 | Outpatient (AMB) | payer BC, SELFPAY ==
--- NOTE | 2025-02-24 08:37 | MHC.OFFVIS ---
Vital Signs 02/24/25 08:38 Height 5 ft 9 in Weight 162 lb BMI 23.9 BP 114/70 Blood Pressure Location Rt brachial Position Sitting Pulse 82 Pulse Source Pulse Oximeter Pulse Oximetry (%) 96 Oxygen Delivery Method Room Air Intake Visit Reasons: [place] Screening Intake Note: New pt for initial colo screening. CC; Pt denies any GI sx or concerns at this time. No pertinent FMHx. 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 male here today for pre colonoscopy screening.? Patient was sent to us by his PCP.? This is his first colonoscopy screening.? Patient denies any gastrointestinal symptoms in the past or at present.? Denies any personal or family history of gastrointestinal disease, colon polyps, or CRC.? Denies history of difficulty with sedation or anesthesia in the past.? Negative for history of sleep apnea.? Denies any history of cardiac, renal, pulmonary, or hepatic disease.?? No history of infectious? diseases like hepatitis A, B, C, HIV or tuberculosis.? Patient is not on any anticoagulation [facility] Medical History Allergic rhinitis History of insertion of dental endosseous implant Surgical History Hx of wisdom tooth extraction Hx of nasal polypectomy Hx of tonsillectomy Family History Mother Atrial fibrillation Social History Housing: House Patient Tobacco Use Status: Never used Tobacco Tobacco use type: Cigarette e-Cigarette/Vaping Use: Never Used Second Hand Smoke Exposure: No service: No Current occupational status: employed Cognitive needs: No Hearing needs: No Vision needs: Yes (Glasses) Review of Systems Const Denies weight gain and Denies weight loss ENT Reports no additional complaints, Denies dysphagia and Denies odynophagia Card Reports no additional complaints Resp Reports no additional complaints GI Denies abdominal pain, Denies belching, Denies melena, Denies bloating, Denies change in bowel habits, Denies dysphagia, Denies excessive flatus, Denies dyspepsia, Denies heartburn, Denies diarrhea, Denies loose stools, Denies nausea, Denies odynophagia and Denies vomiting Reports no additional complaints Musc Reports no additional complaints Neuro Reports no additional complaints Psych Reports no additional complaints Endo Reports no additional complaints Physical Exam Vital Signs: Last Vital Signs Pulse 82 02/24/25 08:38 BP 114/70 02/24/25 08:38 Pulse Ox 96 02/24/25 08:38 Oxygen Delivery Method Room Air 02/24/25 08:38 BMI result Body Mass Index 23.9 Const General: healthy appearing, no acute distress and well developed Nutritional Appearance: well nourished Orientation/consciousness: patient oriented x3 Resp Effort & Inspection: normal respiratory effort, able to speak in complete sentences, no tracheal deviation and symmetric chest movement Auscultation: clear to auscultation bilaterally Cardio Rate: regular rate GI Inspection: Yes normal to inspection and No distended Palpation (GI): Soft to palpation, not firm, nontender and No hepatosplenomegaly present Auscultation: normal bowel sounds General: Yes no CVA tenderness Back/Spine/Pelvis Back: no CVA tenderness Skin General skin exam: elasticity normal, turgor normal and dry skin Neuro General: patient oriented x3 Psych Appearance: grossly normal Mental Status: mental status grossly normal Assessment & Plan Assessment & Plan (1) Screen for colon cancer: Code(s): Z12.11 - Encounter for screening for malignant neoplasm of colon Plan Patient denies any GI, cardiac or respiratory symptoms.? Denies any issues with anesthesia in the past.? Denies any history of sleep apnea.? No history infectious diseases in the past or present.? Not on any anticoagulation therapy.? No family or personal history of colon cancer or polyps.? Patient denies melena, hematochezia, unintentional weight loss or ribbon like stools.? Discussed at length the pre-procedure,? prep, diet & medications as well as what to expect prior, during and after the procedure.?? Stressed the importance of good bowel prep.? Recommended the use of Vaseline or Calmoseptine OTC & baby wipes with bowel movements to promote comfort.? ?Patient verbalizes understanding and agrees to plan of care.?He was given the opportunity to ask questions and all questions answered.? We will see him after the procedure.? Medications: New bisacodyl (Dulcolax (bisacodyl)) take 4 tabs at noon the day before your colonoscopy 20 mg (4 x 5 mg) PO ONCE 4 tabs 0RF constipation 1 day Z12.11 - Encounter for screening for malignant neoplasm of colon polyethylene glycol 3350 (Miralax) As directed by gastroenterology department at [facility] 238 grams PO ONCE 238 grams 0RF Z12.11 - Encounter for screening for malignant neoplasm of colon Coding Level of Care Code New Pt Level 3 (23729) Diagnoses Screen for colon cancer Z12.11 Time Spent (min) 40 Comment 30 minutes spent with patient and additional 10 minutes spent reviewing his records
[2025-02-24 08:38] VITALS: BP 114/70; PULSE 82; O2SAT 96; BMI 23.9
== END 2025-02-24 09:50 | disposition home or self-care (01) ==
LOC: HO.HGI 08:37
PROVIDERS: Visit Provider Nurse Practitioner Family
DX: Z01.818 Encounter for other preprocedural examination (principal); Z12.11 Encounter for screening for malignant neoplasm of colon
CPT/HCPCS: S0285

== ENCOUNTER 2025-04-13 11:16 | Day surgery (SDC) | payer BC, SELFPAY ==
[2025-04-09 14:56] VITALS: BMI 23.9
[2025-04-13 11:42] VITALS: BMI 24.0
[2025-04-13] MEDS: Lactated Ringers 1,000 ML 100 ML IVCONT (11:47)
[2025-04-13 11:52] VITALS: BP 100/72; PULSE 72; RESP 18; TEMP 36.7; O2SAT 99
--- NOTE | 2025-04-13 12:30 | MHC.SHP ---
Pre-Procedural Eval Section A - 24 Hr Update-Section A only Date of Service: 04/13/25 The patient is an INPATIENT: No The patient has been examined within 24 hours of the surgical procedure. The History & Physical has been completed within 30 days and I have reviewed it.: No Section B - Complete if H&P > 30 days Chief Complaint: screening Relevant Family History (Specify if Yes): No Relevant Social History: None Present Medications: see Short Stay Collaborative assessment Medical History: Significant History (Allergic rhinitis History of insertion of dental endosseous implant) History of Previous Operations: Relevant previous surgery/procedure and date(s) (Hx of wisdom tooth extraction Hx of nasal polypectomy Hx of tonsillectomy) Allergies: Allergies Allergy/AdvReac Type Severity Reaction Status Date / Time No Known Allergies Allergy Verified 04/13/25 11:43 Review of Systems Sugical H&P ROS: Negative: Constitution, Cardiovascular, Respiratory and Gastrointestinal Exam Surgical H&P Exam: Normal: Heart, Normal: Lungs, Normal: Extremities and Normal: Abdomen Plan Diagnosis/Plan: Unchanged I have reviewed the history and physical and performed a pertinent physical examination on my patient. No changes have occurred unless specified. Time Spent With Patient Time: Total time managing care of this patient today ____ minutes.
--- NOTE | 2025-04-13 12:55 | HO.ANESPROP2 ---
Documented by User: Mary Dumont NP 04/08/25 13:32 HPI - Anesthesia Eval Consult details Narrative: 49yo M for Colonoscopy PMFSH Active Problems Active Problems: All Active Problems Allergic rhinitis (Acute) Back pain (Acute) Seasonal allergies (Acute) COVID-19 (Acute) Asthma (Acute) Nocturia (Acute) Foot pain (Acute) Hip pain (Acute) Physical exam (Acute) Nasal polyps (Acute) Tonsillar enlargement (Acute) Past Medical History Medical History Allergic rhinitis History of insertion of dental endosseous implant Family History Family History Mother Atrial fibrillation Surgical History Surgical History Hx of wisdom tooth extraction Hx of nasal polypectomy Hx of tonsillectomy Social History Social History Housing: House Are you a primary primary care sales representative to a significant other at home: No Do you presently have visiting nurse or other home services: No Patient Tobacco Use Status: Never used Tobacco Tobacco use type: Cigarette e-Cigarette/Vaping Use: Never Used Second Hand Smoke Exposure: No Have you been hit, kicked, punched, or otherwise hurt by someone within the past year? If so, by whom?: No Are you DNR?: No Advance Directives: No Advance Directives Information Provided: Yes service: No Current occupational status: employed Cognitive needs: No Hearing needs: No Vision needs: Yes (Glasses) Meds Allergies Allergy/AdvReac Type Severity Reaction Status Date / Time No Known Allergies Allergy Verified 04/13/25 11:43 Home Medications ?Medication ?Instructions ?Recorded ?Confirmed ?Last Taken ?Type loratadine-pseudoephedrine ER 10 1 tab PO DAILY PRN Allergy Symptoms 01/05/25 04/09/25 Unknown History mg-240 mg tablet,extended [id number] (Claritin-D 24 Hour) Assessment and Plan Assessment Anesthesia Assessment: Chart Reviewed Documented by User: Meredith Maxwell DO 04/13/25 12:57 [facility] Past Medical History Medical History Allergic rhinitis History of insertion of dental endosseous implant Family History Family History Mother Atrial fibrillation Family history of problems with anesthesia: No Surgical History Surgical History Hx of wisdom tooth extraction Hx of nasal polypectomy Hx of tonsillectomy History of Problems with Anesthesia: No Social History Social History Housing: House Are you a primary primary care sales representative to a significant other at home: No Do you presently have visiting nurse or other home services: No Patient Tobacco Use Status: Never used Tobacco Tobacco use type: Cigarette e-Cigarette/Vaping Use: Never Used Second Hand Smoke Exposure: No Have you been hit, kicked, punched, or otherwise hurt by someone within the past year? If so, by whom?: No Are you DNR?: No Advance Directives: No Advance Directives Information Provided: Yes service: No Current occupational status: employed Cognitive needs: No Hearing needs: No Vision needs: Yes (Glasses) Meds Allergies Allergy/AdvReac Type Severity Reaction Status Date / Time No Known Allergies Allergy Verified 04/13/25 11:43 Home Medications ?Medication ?Instructions ?Recorded ?Confirmed ?Last Taken ?Type loratadine-pseudoephedrine ER 10 1 tab PO DAILY PRN Allergy Symptoms 01/05/25 04/09/25 Unknown History mg-240 mg tablet,extended [id number] (Claritin-D 24 Hour) Exam Exam Date and Time: 04/13/25 1255 Height,Weight and Vital Signs: Height 5 ft 9 in Weight 73.7 kg Vital Signs Temperature 98.1 F 04/13/25 11:52 Pulse Rate 72 04/13/25 11:52 Respiratory Rate 18 04/13/25 11:52 Blood Pressure 100/72 04/13/25 11:52 Pulse Oximetry 99 04/13/25 11:52 Oxygen Delivery Method Room Air 04/13/25 11:52 Temperature 98.1 F 04/13/25 11:52 Pulse Rate 72 04/13/25 11:52 Respiratory Rate 18 04/13/25 11:52 Blood Pressure 100/72 04/13/25 11:52 Pulse Oximetry 99 04/13/25 11:52 Oxygen Delivery Method Room Air 04/13/25 11:52 Airway Mallampati Class: I TM Dist: >3cm Neck ROM: Full Loose/Missing/Broken Teeth: No (patient denies any loose or broken teeth) Heart: S1S2 Lungs: CTAB Assessment and Plan Assessment Anesthesia Assessment: Anesthesia Plan Discussed and Chart Reviewed Final Anesthetic Review Family History of Problems with Anesthesia: No History of Problems with Anesthesia: No NPO: Yes ASA Class: II Final Preanesthetic Review: No Changes in Pt Med Stat, Meds/Allgs Chart Reviewed, Consent Obtained/Reviewed and Anes Risks/Benef Reviewed Patient Risk: Low Procedure Risk: Low Anesthetic Plan Anesthetic Plan: MAC: and Agree w/ Assess. and Plan Disposition: Standard PACU
--- NOTE | 2025-04-13 13:06 | HO.OPN-COLON ---
Colonoscopy Operative Note Operative Note Date of Service: 04/13/25 Narrative: COLONOSCOPY TILL CECUM Pre-op diagnosis: Colon cancer screening (first colon). Post-op diagnosis:? Diverticulosis, hemorrhoids Endoscopist:? Molina Grimes MD Anesthesia:?MAC Consent: Indications for the procedure and potential complications of bleeding, perforation, reaction to medications and missed diagnosis were discussed with the patient and informed consent was obtained. Instrument: Olympus CF H 190 L variable stiffness adult colonoscope Monitoring: Vital signs and clinical assessment, intermittent blood pressure monitoring, continuous EKG monitoring, Pulse oximetry and Carbon Dioxide monitoring were done throughout the procedure. Please see anesthesia flowsheet. Colon withdrawl time was 15 minutes. Procedure: The patient was placed in the left lateral decubitis position and pre-procedure medications were administered. After a digital rectal examination of the ano-rectum, the video colonoscope was inserted into the rectum and advanced through the colon to the cecum. The colonoscope was slowly withdrawn in a retrograde panoramic fashion and the colon mucosa was carefully examined including a retroflexed view of the rectum. Findings and interventions are described below. Procedure Difficulty: Colon was long and there was some loop formation Findings: Terminal Ileum: Not evaluated Cecum: Normal Ascending Colon: Normal Transverse Colon: Normal Descending Colon: Normal Sigmoid Colon: Moderate diverticulosis Rectum: Normal Ano-rectum: Moderate internal hemorrhoids Colon preparation: Excellent, after some irrigation. [place] Bowel Preparation Scale Right colon; 3 Transverse colon: 3 Left colon; 3 (0 = Unprepared colon segment with mucosa not seen due to solid stool that cannot be cleared. 1 = Portion of mucosa of the colon segment seen, but other areas of the colon segment not well seen due to staining, residual stool and/or opaque liquid. 2 = Minor amount of residual staining, small fragments of stool and/or opaque liquid, but mucosa of colon segment seen well. 3 = Entire mucosa of colon segment seen well with no residual staining, small fragments of stool or opaque liquid) Impression and Post Procedure Diagnosis: Colonoscopy Findings: No polyps were detected Moderate diverticulosis seen in the sigmoid colon Moderate hemorrhoids on retroflexed exam. Plan: Repeat Colonoscopy in 10 year (earlier if patient develops a change in bowel habits or rectal bleeding). Above findings were reviewed with the patient and relevant handouts were given and the discharge area. Patient was placed on the colonoscopy recall list for repeat colonoscopy in 10 years.
[2025-04-13 13:35] VITALS: BP 108/69; PULSE 77; RESP 12; TEMP 36.3; O2SAT 100
[2025-04-13 13:40] VITALS: BP 107/64; PULSE 67; RESP 14; O2SAT 98
[2025-04-13 13:55] VITALS: BP 120/78; PULSE 64; RESP 16; TEMP 36.1; O2SAT 98
== END 2025-04-13 14:17 | disposition home or self-care (01) ==
PROVIDERS: Visit Provider Internal Medicine Gastroenterology
PROC: 0DJD8ZZ Inspection of Lower Intestinal Tract, Via Natural or Artificial Opening Endoscopic (ICD-10-PCS; CPT 45378; principal; 2025-04-13 14:40)
DX: Z12.11 Encounter for screening for malignant neoplasm of colon (principal); K64.8 Other hemorrhoids; K57.30 Diverticulosis of large intestine without perforation or abscess without bleeding
CPT/HCPCS: 45378; J2704

== ENCOUNTER → 2025-04-13 11:16 | Outpatient (BNV) | payer BC, SELFPAY | PROVIDERS: Visit Provider Internal Medicine Gastroenterology | DX: Z12.11 Encounter for screening for malignant neoplasm of colon (principal); K57.30 Diverticulosis of large intestine without perforation or abscess without bleeding; K64.8 Other hemorrhoids | CPT/HCPCS: 45378 ==